=== PATIENT | male | born 1980 | race Caucasian/White ===

== ENCOUNTER 2016-05-20 06:21 | Emergency (ER) | payer OTHER ==
[~2016-05-20] VITALS: Ht 182.8 cm; Wt 68.0 kg
[~2016-05-20 06:21] MED LIST: CLEOCIN150 MG PO; CLINDAMYCIN HC300 MG PO; HYDROCODONE BIT1 T11 PO; MOTRIN800 MG PO; Motrin,Rufen800 MG PO; NAPROSYN500 MG PO; NKHM; PERCOCET 325 MG1 TA7 PO
[2016-05-20 06:59] LABS: BASO # 0.1 10*3/uL (0.0-0.1); BASO % 1.5 % (0.0-1.0); EOS # 0.2 10*3/uL (0.0-0.4); EOS % 3.1 % (1.0-4.0); HEMATOCRIT 38.7 % (42.0-52.0); HEMOGLOBIN 13.2 g/dl (14.0-18.0); LYMPH # 1.7 10*3/uL (1.3-4.4); LYMPH % 35.1 % (27.0-41.0); MEAN CELL VOLUME 102.1 fl (80.0-94.0); MEAN CORPUSCULAR HGB 34.8 pg (27.0-31.0); MEAN CORPUSCULAR HGB CONC 34.1 g/dl (33.0-37.0); MONO # 0.8 10*3/uL (0.1-1.0); MONO % 15.7 % (3.0-9.0); NEUT # 2.1 10*3/uL (2.3-7.9); NEUT % 44.4 % (47.0-73.0); PLATELET COUNT AUTOMATED 214 10*3/uL (130-400); RED BLOOD COUNT 3.79 10*6/uL (4.50-5.90); RED CELL DISTRI WIDTH 13.2 % (0-14.5); WHITE BLOOD COUNT 4.8 10*3/uL (4.8-10.8)
[2016-05-20 07:07] LABS: PROTHROMBIN TIME 10.3 SECONDS (9.0-12.4)
[2016-05-20 07:27] LABS: ALBUMIN 4.2 gm/dl (3.1-4.5); ALKALINE PHOSPHATASE 70 U/L (45-117); BILIRUBIN, TOTAL 0.4 mg/dl (0.2-1.0); BUN 11 mg/dl (7-24); CARBON DIOXIDE 26 mmol/L (21-32); CHLORIDE 105 mmol/L (98-107); EST GLOM FILT AFRICAN AMERICAN > 60 ml/min; GLUCOSE 101 mg/dL (65-99); MAGNESIUM 1.6 mg/dL (1.5-2.1); POTASSIUM 3.9 mmol/L (3.5-5.1); SGOT/AST 228 IU/L (3-35); SGPT/ALT 118 U/L (12-78); SODIUM 143 mmol/L (136-145); TOTAL PROTEIN 7.9 gm/dL (6.4-8.2)
[2016-05-20 07:29] LABS: C-REACTIVE PROTEIN < 0.29 MG/DL (0-0.3)
[2016-06-09] MEDS ORDERED: ATARAX,VISTARIL50 MG PO (18:16)
[2016-06-09] MEDS ORDERED: VITAMIN B-11 TAB PO (18:16)
[2016-06-09] MEDS ORDERED: NATURE'S BLEND F1 MG PO (18:16)
[2016-06-09] MEDS ORDERED: PANTOPRAZOLE SO40 MG PO (18:16)
[2016-06-09] MEDS ORDERED: Carafate1 GM/10 ML PO (18:16)
[2016-06-09] MEDS ORDERED: THERA TABS1 TAB PO (18:16)
== END 2016-05-20 09:20 | disposition left against medical advice (07) ==
LOC: ED 06:21
PROVIDERS: Emergency Medicine Emergency Medical Services
DX: K59.00 Constipation, unspecified (principal); F10.120 Alcohol abuse with intoxication, uncomplicated; F17.200 Nicotine dependence, unspecified, uncomplicated

== ENCOUNTER 2017-04-22 10:33 | Emergency (ER) | payer OTHER ==
[~2017-04-22] VITALS: Ht 182.8 cm; Wt 68.0 kg
[~2017-04-22 10:33] MED LIST changes: +ATARAX,VISTARIL50 MG PO; +Carafate1 GM/10 ML PO; +NATURE'S BLEND F1 MG PO; +PANTOPRAZOLE SO40 MG PO; +THERA TABS1 TAB PO; +VITAMIN B-11 TAB PO
[2017-04-22] MEDS ORDERED: ZOFRAN ODT4 MG SL (11:41)
== END 2017-04-22 11:33 | disposition home or self-care (01) ==
LOC: ED 10:33
DX: A08.4 Viral intestinal infection, unspecified (principal); R51 Headache; K21.9 Gastro-esophageal reflux disease without esophagitis; F17.200 Nicotine dependence, unspecified, uncomplicated

== ENCOUNTER 2017-08-25 09:00 | Emergency (ER) | payer OTHER ==
[~2017-08-25] VITALS: Ht 182.8 cm; Wt 68.0 kg
[~2017-08-25 09:00] MED LIST changes: +ZOFRAN ODT4 MG SL
[2017-08-25 09:03] VITALS: BP 110/85
[2017-08-25 09:28] LABS: BASO # 0.1 10*3/uL (0.0-0.1); BASO % 0.7 % (0.0-1.0); EOS # 0.1 10*3/uL (0.0-0.4); EOS % 0.4 % (1.0-4.0); HEMATOCRIT 42.5 % (42.0-52.0); HEMOGLOBIN 15.1 g/dl (14.0-18.0); LYMPH # 1.9 10*3/uL (1.3-4.4); MEAN CELL VOLUME 95.1 fl (80.0-94.0); MEAN CORPUSCULAR HGB 33.8 pg (27.0-31.0); MEAN CORPUSCULAR HGB CONC 35.5 g/dl (33.0-37.0); MONO # 0.8 10*3/uL (0.1-1.0); MONO % 6.4 % (3.0-9.0); NEUT # 9.9 10*3/uL (2.3-7.9); PLATELET COUNT AUTOMATED 340 10*3/uL (130-400); RED BLOOD COUNT 4.47 10*6/uL (4.50-5.90); RED CELL DISTRI WIDTH 12.5 % (0-14.5); WHITE BLOOD COUNT 12.8 10*3/uL (4.8-10.8)
[2017-08-25 09:48] LABS: ALKALINE PHOSPHATASE 90 U/L (45-117); BUN 12 mg/dl (7-24); CHLORIDE 104 mmol/L (98-107); CREATININE 0.86 mg/dL (0.70-1.30); LIPASE 74 U/L (73-393); POTASSIUM 3.7 mmol/L (3.5-5.1); SGOT/AST 42 IU/L (3-35); SGPT/ALT 34 U/L (12-78); SODIUM 140 mmol/L (136-145); TOTAL PROTEIN 7.9 gm/dL (6.4-8.2)
[2017-08-25 09:54] LABS: BILIRUBIN NEGATIVE (NEGATIVE); BLOOD NEGATIVE (NEGATIVE); CLARITY CLEAR (CLEAR); COLOR YELLOW (YELLOW); GLUCOSE NEGATIVE (NEGATIVE); KETONE 1+ (NEGATIVE); LEUKO ESTERASE NEGATIVE (NEGATIVE); NITRITE NEGATIVE (NEGATIVE)
[2017-08-25 10:00] VITALS: BP 128/84
[2017-08-25 10:02] LABS: URINE AMPHETAMINES < 1000 (1000ng/ml); URINE BARBITURATES < 200 (200ng/ml); URINE BENZODIAZEPINES < 200 (200ng/ml); URINE CANNABINOIDS (THC) > 50 (50ng/ml); URINE COCAINE < 300 (300ng/ml); URINE METHADONE < 300 (300ng/ml); URINE OPIATES < 300 (300ng/ml)
[2017-08-25 10:09] LABS: BACTERIA TRACE; MUCOUS 3+
[2017-08-25 10:11] LABS: URINE PHENCYCLIDINE < 25 (25ng/ml)
[2017-08-25 10:50] VITALS: BP 118/72
[2017-08-25 11:17] LABS: ACT PARTIAL THROMBO TIME 20.7 SECONDS (20.8-31.5)
[2017-08-25 11:56] VITALS: BP 124/72
== END 2017-08-25 12:43 | disposition home or self-care (01) ==
LOC: ED 09:00 → EDHOLD 11:46 → 4E 11:53 → EDHOLD 11:53 → ED 12:43
PROVIDERS: Emergency Medicine
DX: K29.20 Alcoholic gastritis without bleeding (principal); R74.0 Nonspecific elevation of levels of transaminase and lactic acid dehydrogenase [LDH]; R10.84 Generalized abdominal pain; F17.200 Nicotine dependence, unspecified, uncomplicated; K21.9 Gastro-esophageal reflux disease without esophagitis

== ENCOUNTER 2017-09-05 14:36 | Emergency (ER) | payer OTHER ==
[~2017-09-05] VITALS: Ht 182.8 cm; Wt 68.0 kg
[2017-09-05 15:00] LABS: BASO # 0.1 10*3/uL (0.0-0.1); BASO % 0.6 % (0.0-1.0); EOS % 0.1 % (1.0-4.0); HEMATOCRIT 39.6 % (42.0-52.0); HEMOGLOBIN 14.2 g/dl (14.0-18.0); LYMPH # 1.2 10*3/uL (1.3-4.4); LYMPH % 9.4 % (27.0-41.0); MEAN CELL VOLUME 95.2 fl (80.0-94.0); MEAN CORPUSCULAR HGB 34.1 pg (27.0-31.0); MEAN CORPUSCULAR HGB CONC 35.9 g/dl (33.0-37.0); MEAN PLATELET VOLUME 8.6 fl (9.6-12.3); MONO # 0.8 10*3/uL (0.1-1.0); MONO % 6.2 % (3.0-9.0); NEUT # 10.6 10*3/uL (2.3-7.9); NEUT % 83.3 % (47.0-73.0); PLATELET COUNT AUTOMATED 341 10*3/uL (130-400); RED BLOOD COUNT 4.16 10*6/uL (4.50-5.90); RED CELL DISTRI WIDTH 12.7 % (0-14.5); WHITE BLOOD COUNT 12.7 10*3/uL (4.8-10.8)
[2017-09-05 15:23] LABS: ALBUMIN 4.6 gm/dl (3.1-4.5); ALKALINE PHOSPHATASE 87 U/L (45-117); BUN 13 mg/dl (7-24); CHLORIDE 103 mmol/L (98-107); CREATININE 0.94 mg/dL (0.70-1.30); LIPASE 122 U/L (73-393); POTASSIUM 3.8 mmol/L (3.5-5.1); SGOT/AST 25 IU/L (3-35); SGPT/ALT 21 U/L (12-78); SODIUM 142 mmol/L (136-145); TOTAL PROTEIN 8.6 gm/dL (6.4-8.2)
[2017-09-05 15:26] LABS: ACETAMINOPHEN (TYLENOL) < 2.0 ug/ml (10-30); ETHYL ALCOHOL < 3.0 mg/dl (<3)
[2017-09-05] MEDS ORDERED: ZOFRAN4 MG PO ×2 (16:59→17:00)
== END 2017-09-05 16:59 | disposition home or self-care (01) ==
LOC: ED 14:36
PROVIDERS: Nurse Practitioner Family
DX: K52.9 Noninfective gastroenteritis and colitis, unspecified (principal); R03.0 Elevated blood-pressure reading, without diagnosis of hypertension; K21.9 Gastro-esophageal reflux disease without esophagitis

== ENCOUNTER 2018-07-21 20:07 | Emergency (ER) | payer OTHER ==
[~2018-07-21] VITALS: Ht 182.8 cm; Wt 70.3 kg
[~2018-07-21 20:07] MED LIST changes: +ZOFRAN4 MG PO
[2018-07-21] MEDS ORDERED: 'CLONIDINE0.1 MG PO (20:17)
== END 2018-07-21 20:42 | disposition home or self-care (01) ==
LOC: ED 20:07
DX: S10.86XA Insect bite of other specified part of neck, initial encounter (principal); K21.9 Gastro-esophageal reflux disease without esophagitis; F17.200 Nicotine dependence, unspecified, uncomplicated; Z79.899 Other long term (current) drug therapy; W57.XXXA Bitten or stung by nonvenomous insect and other nonvenomous arthropods, initial encounter; Y93.89 Activity, other specified; Y92.89 Other specified places as the place of occurrence of the external cause; Y99.8 Other external cause status

== ENCOUNTER 2021-02-23 11:10 | Inpatient (IN) | payer OTHER ==
[~2021-02-23] VITALS: Ht 182.8 cm; Wt 68.0 kg
[~2021-02-23 11:10] MED LIST changes: +'CLONIDINE0.1 MG PO
[2021-02-23 11:37] VITALS: BP 126/78
[2021-02-23 13:04] LABS: BASO # 0.1 10*3/uL (0.0-0.1); BASO % 1.4 % (0.0-1.0); EOS # 0.1 10*3/uL (0.0-0.4); EOS % 2.1 % (1.0-4.0); HEMATOCRIT 37.7 % (42.0-52.0); LYMPH % 20.1 % (27.0-41.0); MEAN CELL VOLUME 93.5 fl (80.0-94.0); MEAN CORPUSCULAR HGB 33.7 pg (27.0-31.0); MEAN CORPUSCULAR HGB CONC 36.1 g/dl (33.0-37.0); MEAN PLATELET VOLUME 8.4 fl (9.6-12.3); MONO # 0.6 10*3/uL (0.1-1.0); MONO % 12.9 % (3.0-9.0); NEUT # 3.1 10*3/uL (2.3-7.9); NEUT % 62.9 % (47.0-73.0); PLATELET COUNT AUTOMATED 264 10*3/uL (130-400); RED BLOOD COUNT 4.03 10*6/uL (4.50-5.90); RED CELL DISTRI WIDTH 12.8 % (0-14.5); WHITE BLOOD COUNT 4.9 10*3/uL (4.8-10.8)
[2021-02-23 13:37] LABS: ALBUMIN 4.2 gm/dl (3.1-4.5); ALKALINE PHOSPHATASE 69 U/L (45-117); BUN 5 mg/dl (7-24); CHLORIDE 90 mmol/L (98-107); CREATININE 0.64 mg/dL (0.70-1.30); POTASSIUM 4.3 mmol/L (3.5-5.1); SGOT/AST 125 IU/L (3-35); SGPT/ALT 98 U/L (12-78); SODIUM 127 mmol/L (136-145); TOTAL PROTEIN 7.9 gm/dL (6.4-8.2)
[2021-02-23 13:38] LABS: ACT PARTIAL THROMBO TIME 28.8 SECONDS (20.0-32.1); INTERNATIONAL NORM RATIO 0.9 (2.0-3.5)
[2021-02-23 13:45] LABS: THYROID STIM HORMONE (HS) 0.988 uIU/ml (0.358-4.75)
[2021-02-23 14:53] LABS: BILIRUBIN Negative (Negative); BLOOD Negative (Negative); CLARITY Clear (Clear); COLOR Yellow (Yellow); GLUCOSE Negative (Negative); KETONE Negative (Negative); LEUKO ESTERASE Negative (Negative); NITRITE Negative (Negative); SPECIFIC GRAVITY <= 1.005 (1.001-1.030); UROBILINOGEN 0.2 E.U./dl (0.0-1.0)
[2021-02-23 15:02] LABS: EPITHELIAL CELLS 0-2; RBC 0-2 rbc/hpf (0-2); WBC 0-2 wbc/hpf (0-5)
[2021-02-23 15:04] LABS: URINE AMPHETAMINES < 1000 (1000ng/ml); URINE BARBITURATES < 200 (200ng/ml); URINE BENZODIAZEPINES < 200 (200ng/ml); URINE CANNABINOIDS (THC) > 50 (50ng/ml); URINE COCAINE < 300 (300ng/ml); URINE METHADONE < 300 (300ng/ml); URINE OPIATES < 300 (300ng/ml)
[2021-02-23 15:07] LABS: URINE PHENCYCLIDINE < 25 (25ng/ml)
== END 2021-02-23 17:22 | disposition left against medical advice (07) | DRG 770 ==
LOC: ED 11:10 → EDHOLD 15:29
PROVIDERS: Emergency Medicine; ADMIT Student in an Organized Health Care Education/Training Program; ATTEND Student in an Organized Health Care Education/Training Program
DX: F10.229 Alcohol dependence with intoxication, unspecified (principal); G62.9 Polyneuropathy, unspecified; K21.9 Gastro-esophageal reflux disease without esophagitis; R74.01 Elevation of levels of liver transaminase levels; F17.210 Nicotine dependence, cigarettes, uncomplicated; D53.9 Nutritional anemia, unspecified; E87.1 Hypo-osmolality and hyponatremia; F10.239 Alcohol dependence with withdrawal, unspecified; F41.9 Anxiety disorder, unspecified; Z80.1 Family history of malignant neoplasm of trachea, bronchus and lung; Z79.899 Other long term (current) drug therapy

== ENCOUNTER 2021-03-18 09:52 | Emergency (ER) | payer OTHER ==
[~2021-03-18] VITALS: Ht 182.8 cm; Wt 65.8 kg
[2021-03-18 10:25] LABS: BASO # 0.1 10*3/uL (0.0-0.1); BASO % 0.9 % (0.0-1.0); EOS # 0.1 10*3/uL (0.0-0.4); EOS % 1.8 % (1.0-4.0); HEMATOCRIT 42.3 % (42.0-52.0); LYMPH # 0.9 10*3/uL (1.3-4.4); MEAN CELL VOLUME 98.8 fl (80.0-94.0); MEAN CORPUSCULAR HGB 33.2 pg (27.0-31.0); MEAN CORPUSCULAR HGB CONC 33.6 g/dl (33.0-37.0); MEAN PLATELET VOLUME 8.9 fl (9.6-12.3); MONO % 17.3 % (3.0-9.0); NEUT # 3.6 10*3/uL (2.3-7.9); NEUT % 63.8 % (47.0-73.0); PLATELET COUNT AUTOMATED 220 10*3/uL (130-400); RED BLOOD COUNT 4.28 10*6/uL (4.50-5.90); RED CELL DISTRI WIDTH 13.4 % (0-14.5); WHITE BLOOD COUNT 5.6 10*3/uL (4.8-10.8)
[2021-03-18 10:39] LABS: ALBUMIN 4.7 gm/dl (3.1-4.5); ALKALINE PHOSPHATASE 89 U/L (45-117); BUN 16 mg/dl (7-24); CHLORIDE 98 mmol/L (98-107); CREATININE 0.95 mg/dL (0.70-1.30); POTASSIUM 3.4 mmol/L (3.5-5.1); SGOT/AST 101 IU/L (3-35); SGPT/ALT 101 U/L (12-78); SODIUM 133 mmol/L (136-145); TOTAL PROTEIN 8.9 gm/dL (6.4-8.2)
[2021-03-18 10:42] LABS: ETHYL ALCOHOL < 3.0 mg/dl (<3)
[2021-03-18 10:57] LABS: BILIRUBIN 1+ (Negative); BLOOD Negative (Negative); CLARITY Cloudy (Clear); COLOR Dark Yellow (Yellow); GLUCOSE Negative (Negative); KETONE Trace (Negative); LEUKO ESTERASE Trace (Negative); NITRITE Negative (Negative); PH 7.5 (4.5-8.0); SPECIFIC GRAVITY >= 1.030 (1.001-1.030)
[2021-03-18 11:06] LABS: MUCOUS 1+
[2021-03-18 11:12] LABS: URINE AMPHETAMINES < 1000 (1000ng/ml); URINE BARBITURATES < 200 (200ng/ml); URINE BENZODIAZEPINES < 200 (200ng/ml); URINE CANNABINOIDS (THC) > 50 (50ng/ml); URINE COCAINE < 300 (300ng/ml); URINE METHADONE < 300 (300ng/ml); URINE OPIATES < 300 (300ng/ml)
[2021-03-18] MEDS ORDERED: ROPINIROLE HYD0.5 MG PO (11:16)
[2021-03-18 11:18] LABS: URINE PHENCYCLIDINE < 25 (25ng/ml)
== END 2021-03-18 11:22 | disposition home or self-care (01) ==
LOC: ED 09:52
PROVIDERS: Student in an Organized Health Care Education/Training Program
DX: G62.1 Alcoholic polyneuropathy (principal)

== ENCOUNTER 2021-04-13 21:10 | Emergency (ER) | payer OTHER ==
[~2021-04-13] VITALS: Ht 182.8 cm; Wt 63.5 kg
[~2021-04-13 21:10] MED LIST changes: +ROPINIROLE HYD0.5 MG PO
[2021-04-13] MEDS ORDERED: PENICILLIN VK500 MG PO (21:37)
== END 2021-04-13 21:44 | disposition home or self-care (01) ==
LOC: ED 21:10
DX: K04.7 Periapical abscess without sinus (principal); K02.9 Dental caries, unspecified

== ENCOUNTER 2021-07-26 06:20 | Emergency (ER) | payer OTHER ==
[~2021-07-26 06:20] MED LIST changes: +PENICILLIN VK500 MG PO
== END 2021-07-26 08:11 | disposition home or self-care (01) ==
LOC: ED 06:20
DX: S01.01XA Laceration without foreign body of scalp, initial encounter (principal); F17.210 Nicotine dependence, cigarettes, uncomplicated; W18.39XA Other fall on same level, initial encounter; Y93.89 Activity, other specified; Y92.89 Other specified places as the place of occurrence of the external cause; Y99.8 Other external cause status

== ENCOUNTER → 2021-08-01 | Outpatient (CLI) | payer OTHER | LOC: WOUNDCARE 13:56 | PROVIDERS: ATTEND Nurse Practitioner Family | DX: S01.80XA Unspecified open wound of other part of head, initial encounter (principal); Z48.02 Encounter for removal of sutures; X58.XXXA Exposure to other specified factors, initial encounter; Y93.89 Activity, other specified; Y92.89 Other specified places as the place of occurrence of the external cause; Y99.8 Other external cause status ==

== ENCOUNTER 2022-01-13 19:13 | Inpatient (IN) | payer OTHER ==
[~2022-01-13] VITALS: Ht 182.8 cm; Wt 66.7 kg
[2022-01-13 19:23] VITALS: BP 160/82
[2022-01-13 20:02] LABS: BASO % 0.1 % (0.0-1.0); EOS % 0.1 % (1.0-4.0)
[2022-01-13 20:06] LABS: HEMATOCRIT 41.8 % (42.0-52.0); LYMPH # 0.9 10*3/uL (1.3-4.4); LYMPH % 5.7 % (27.0-41.0); MEAN CELL VOLUME 90.9 fl (80.0-94.0); MEAN CORPUSCULAR HGB 33.7 pg (27.0-31.0); MONO # 1.4 10*3/uL (0.1-1.0); MONO % 9.4 % (3.0-9.0); NEUT # 12.7 10*3/uL (2.3-7.9); NEUT % 84.4 % (47.0-73.0); PLATELET COUNT AUTOMATED 264 10*3/uL (130-400); RED CELL DISTRI WIDTH 12.1 % (0-14.5)
[2022-01-13 20:07] LABS: MEAN CORPUSCULAR HGB CONC 37.1 g/dl (33.0-37.0)
[2022-01-13 20:20] LABS: ALKALINE PHOSPHATASE 90 U/L (45-117); BUN 8 mg/dl (7-24); CHLORIDE 92 mmol/L (98-107); CREATININE 0.85 mg/dL (0.70-1.30); ETHYL ALCOHOL < 3.0 mg/dl (<3); LIPASE 114 U/L (73-393); POTASSIUM 5.2 mmol/L (3.5-5.1); SGOT/AST 23 IU/L (3-35); SGPT/ALT 18 U/L (12-78); SODIUM 129 mmol/L (136-145); TOTAL PROTEIN 8.4 gm/dL (6.4-8.2)
[2022-01-13 20:28] VITALS: BP 168/87
[2022-01-13 21:10] VITALS: BP 148/86
[2022-01-14] VITALS (7 sets, daily range): BP systolic 129–166; BP diastolic 89–102
[2022-01-14 04:07] LABS: BASO % 0.1 % (0.0-1.0); HEMATOCRIT 40.8 % (42.0-52.0); LYMPH # 0.8 10*3/uL (1.3-4.4); LYMPH % 6.7 % (27.0-41.0); MEAN CELL VOLUME 92.5 fl (80.0-94.0); MEAN CORPUSCULAR HGB 33.8 pg (27.0-31.0); MEAN CORPUSCULAR HGB CONC 36.5 g/dl (33.0-37.0); MEAN PLATELET VOLUME 8.9 fl (9.6-12.3); MONO # 1.3 10*3/uL (0.1-1.0); MONO % 11.2 % (3.0-9.0); NEUT # 9.7 10*3/uL (2.3-7.9); NEUT % 81.7 % (47.0-73.0); PLATELET COUNT AUTOMATED 269 10*3/uL (130-400); RED BLOOD COUNT 4.41 10*6/uL (4.50-5.90); RED CELL DISTRI WIDTH 12.3 % (0-14.5); WHITE BLOOD COUNT 11.9 10*3/uL (4.8-10.8)
[2022-01-14 04:27] LABS: BUN 6 mg/dl (7-24); CHLORIDE 97 mmol/L (98-107); CHOLESTEROL 167 mg/dL (<200); CREATININE 0.71 mg/dL (0.70-1.30); SGOT/AST 20 IU/L (3-35); SGPT/ALT 15 U/L (12-78); SODIUM 132 mmol/L (136-145); TOTAL PROTEIN 8.2 gm/dL (6.4-8.2); TRIGLYCERIDES 94 mg/dl (<150)
[2022-01-14 04:28] LABS: ALKALINE PHOSPHATASE 85 U/L (45-117)
[2022-01-14 04:32] LABS: FREE T4 1.26 ng/dl (0.76-1.46); LDL CHOLESTEROL 89 mg/dL (9-159); THYROID STIM HORMONE (HS) 0.998 uIU/ml (0.358-4.75)
[2022-01-15] VITALS (11 sets, daily range): BP systolic 132–191; BP diastolic 92–116
[2022-01-15 06:23] LABS: HEMATOCRIT 46.8 % (42.0-52.0); MEAN CELL VOLUME 92.9 fl (80.0-94.0); MEAN CORPUSCULAR HGB 33.3 pg (27.0-31.0); MEAN CORPUSCULAR HGB CONC 35.9 g/dl (33.0-37.0); MEAN PLATELET VOLUME 8.8 fl (9.6-12.3); PLATELET COUNT AUTOMATED 343 10*3/uL (130-400); RED BLOOD COUNT 5.04 10*6/uL (4.50-5.90); RED CELL DISTRI WIDTH 12.3 % (0-14.5); WHITE BLOOD COUNT 16.3 10*3/uL (4.8-10.8)
[2022-01-15 06:24] LABS: MANUAL DIFF REFLEX YES
[2022-01-15 06:41] LABS: CHLORIDE 92 mmol/L (98-107); POTASSIUM 4.3 mmol/L (3.5-5.1); SODIUM 131 mmol/L (136-145)
[2022-01-15 06:51] LABS: ALKALINE PHOSPHATASE 88 U/L (45-117); BUN 16 mg/dl (7-24); CREATININE 1.55 mg/dL (0.70-1.30); SGOT/AST 15 IU/L (3-35); SGPT/ALT 16 U/L (12-78); TOTAL PROTEIN 9.1 gm/dL (6.4-8.2)
[2022-01-15 07:31] LABS: ATYPICAL LYMPHS 1 % (0-0); TOTAL CELLS COUNTED 100 #CELLS
[2022-01-15 07:32] LABS: PLATELET SUFFICIENCY NORMAL (NORMAL); POLYCHROMASIA SLIGHT; TOXIC GRANULATION SLIGHT
[2022-01-16 03:27] VITALS: BP 135/83
[2022-01-16 06:44] LABS: HEMATOCRIT 42.1 % (42.0-52.0); MEAN CELL VOLUME 95.7 fl (80.0-94.0); MEAN CORPUSCULAR HGB 33.9 pg (27.0-31.0); MEAN CORPUSCULAR HGB CONC 35.4 g/dl (33.0-37.0); MEAN PLATELET VOLUME 8.8 fl (9.6-12.3); PLATELET COUNT AUTOMATED 327 10*3/uL (130-400); RED CELL DISTRI WIDTH 12.5 % (0-14.5); WHITE BLOOD COUNT 16.9 10*3/uL (4.8-10.8)
[2022-01-16 06:50] LABS: MANUAL DIFF REFLEX YES
[2022-01-16 06:59] LABS: ALKALINE PHOSPHATASE 72 U/L (45-117); BUN 19 mg/dl (7-24); CHLORIDE 99 mmol/L (98-107); CREATININE 0.87 mg/dL (0.70-1.30); POTASSIUM 4.2 mmol/L (3.5-5.1); SGOT/AST 10 IU/L (3-35); SGPT/ALT 12 U/L (12-78); SODIUM 131 mmol/L (136-145); TOTAL PROTEIN 7.5 gm/dL (6.4-8.2)
[2022-01-16 07:40] LABS: TOTAL CELLS COUNTED 100 #CELLS
[2022-01-16 07:41] LABS: PLATELET SUFFICIENCY NORMAL (NORMAL); POLYCHROMASIA SLIGHT; TOXIC GRANULATION SLIGHT
[2022-01-16 08:00] VITALS: BP 151/93
[2022-01-16 11:59] VITALS: BP 172/92
[2022-01-16 16:00] VITALS: BP 153/89
[2022-01-16 20:00] VITALS: BP 151/90
[2022-01-17] VITALS: BP 155/90
[2022-01-17 06:32] LABS: MEAN CORPUSCULAR HGB 34.1 pg (27.0-31.0); MEAN CORPUSCULAR HGB CONC 34.4 g/dl (33.0-37.0); MEAN PLATELET VOLUME 8.5 fl (9.6-12.3); PLATELET COUNT AUTOMATED 323 10*3/uL (130-400); RED BLOOD COUNT 3.93 10*6/uL (4.50-5.90); RED CELL DISTRI WIDTH 12.4 % (0-14.5); WHITE BLOOD COUNT 18.9 10*3/uL (4.8-10.8)
[2022-01-17 06:33] LABS: MANUAL DIFF REFLEX YES
[2022-01-17 06:34] LABS: MEAN CELL VOLUME 99.2 fl (80.0-94.0)
[2022-01-17 06:43] LABS: CHLORIDE 99 mmol/L (98-107); CREATININE 0.81 mg/dL (0.70-1.30); POTASSIUM 4.1 mmol/L (3.5-5.1); SODIUM 134 mmol/L (136-145)
[2022-01-17 06:46] LABS: BUN 9 mg/dl (7-24)
[2022-01-17 06:54] LABS: TOTAL CELLS COUNTED 100 #CELLS
[2022-01-17 06:55] LABS: PLATELET SUFFICIENCY NORMAL (NORMAL); POLYCHROMASIA SLIGHT; TOXIC GRANULATION SLIGHT
[2022-01-17 08:00] VITALS: BP 142/91
[2022-01-17 12:00] VITALS: BP 160/90
[2022-01-17 16:00] VITALS: BP 155/91
[2022-01-17 20:00] VITALS: BP 168/95
[2022-01-17 21:33] VITALS: BP 148/93
[2022-01-18] VITALS: BP 150/92
[2022-01-18 06:04] LABS: BUN 7 mg/dl (7-24); CHLORIDE 101 mmol/L (98-107); CREATININE 0.54 mg/dL (0.70-1.30); POTASSIUM 3.5 mmol/L (3.5-5.1); SODIUM 136 mmol/L (136-145)
[2022-01-18 06:24] LABS: HEMATOCRIT 34.5 % (42.0-52.0); MEAN CORPUSCULAR HGB 34.4 pg (27.0-31.0); MEAN CORPUSCULAR HGB CONC 35.1 g/dl (33.0-37.0); MEAN PLATELET VOLUME 8.8 fl (9.6-12.3); PLATELET COUNT AUTOMATED 358 10*3/uL (130-400); RED BLOOD COUNT 3.52 10*6/uL (4.50-5.90); RED CELL DISTRI WIDTH 12.1 % (0-14.5); WHITE BLOOD COUNT 14.6 10*3/uL (4.8-10.8)
[2022-01-18 06:25] LABS: MANUAL DIFF REFLEX YES
[2022-01-18 07:09] LABS: TOTAL CELLS COUNTED 100 #CELLS
[2022-01-18 07:10] LABS: PLATELET SUFFICIENCY NORMAL (NORMAL)
[2022-01-18 08:00] VITALS: BP 160/97
[2022-01-18 16:00] VITALS: BP 155/92
[2022-01-18 20:00] VITALS: BP 137/65; BP 157/90
[2022-01-19 05:17] LABS: BUN 11 mg/dl (7-24); CHLORIDE 102 mmol/L (98-107); CREATININE 0.64 mg/dL (0.70-1.30); POTASSIUM 3.7 mmol/L (3.5-5.1); SODIUM 138 mmol/L (136-145)
[2022-01-19 06:24] LABS: HEMATOCRIT 34.7 % (42.0-52.0); MEAN CELL VOLUME 99.4 fl (80.0-94.0); MEAN CORPUSCULAR HGB 34.4 pg (27.0-31.0); MEAN CORPUSCULAR HGB CONC 34.6 g/dl (33.0-37.0); PLATELET COUNT AUTOMATED 459 10*3/uL (130-400); RED BLOOD COUNT 3.49 10*6/uL (4.50-5.90); RED CELL DISTRI WIDTH 12.1 % (0-14.5); WHITE BLOOD COUNT 14.1 10*3/uL (4.8-10.8)
[2022-01-19 06:27] LABS: MANUAL DIFF REFLEX YES
[2022-01-19 07:18] LABS: TOTAL CELLS COUNTED 100 #CELLS
[2022-01-19 07:19] LABS: BURR CELLS FEW; PLATELET SUFFICIENCY HIGH (NORMAL); POLYCHROMASIA SLIGHT; TOXIC GRANULATION SLIGHT
[2022-01-19 08:00] VITALS: BP 150/70
[2022-01-19 12:00] VITALS: BP 147/93
[2022-01-19 16:00] VITALS: BP 131/83
[2022-01-19 20:00] VITALS: BP 122/63; BP 135/93
[2022-01-20] VITALS: BP 142/90
[2022-01-20 05:36] LABS: BUN 9 mg/dl (7-24); CHLORIDE 103 mmol/L (98-107); CREATININE 0.62 mg/dL (0.70-1.30); SODIUM 135 mmol/L (136-145)
[2022-01-20 06:14] LABS: HEMATOCRIT 32.5 % (42.0-52.0); MEAN CELL VOLUME 97.6 fl (80.0-94.0); MEAN CORPUSCULAR HGB 34.5 pg (27.0-31.0); MEAN CORPUSCULAR HGB CONC 35.4 g/dl (33.0-37.0); PLATELET COUNT AUTOMATED 495 10*3/uL (130-400); RED BLOOD COUNT 3.33 10*6/uL (4.50-5.90); RED CELL DISTRI WIDTH 11.9 % (0-14.5); WHITE BLOOD COUNT 13.3 10*3/uL (4.8-10.8)
[2022-01-20 06:16] LABS: MANUAL DIFF REFLEX YES
[2022-01-20 06:54] LABS: BASOPHILS 1 % (0-1); PLATELET SUFFICIENCY HIGH (NORMAL); POLYCHROMASIA SLIGHT; TOTAL CELLS COUNTED 100 #CELLS; TOXIC GRANULATION SLIGHT
[2022-01-20 08:00] VITALS: BP 121/79
[2022-01-20] MEDS ORDERED: ONDANSETRON4 MG SL (09:41)
[2022-01-20] MEDS ORDERED: Motrin,Rufen800 MG PO (09:41)
== END 2022-01-20 10:11 | disposition home or self-care (01) | DRG 222 ==
LOC: ED 19:13 → 4E 22:56 → EDHOLD 22:56 → 4E 01-14 15:52
PROVIDERS: Internal Medicine; Occupational Therapist; Physician Assistant; Student in an Organized Health Care Education/Training Program; ADMIT Student in an Organized Health Care Education/Training Program; ATTEND Student in an Organized Health Care Education/Training Program
PROC: 0D9670Z Drainage of Stomach with Drainage Device, Via Natural or Artificial Opening (ICD-10-PCS; principal; 2022-01-14)
PROC: 0DNW0ZZ Release Peritoneum, Open Approach (ICD-10-PCS; 2022-01-15)
PROC: 0DJ04ZZ Inspection of Upper Intestinal Tract, Percutaneous Endoscopic Approach (ICD-10-PCS; 2022-01-15)
DX: K56.609 Unspecified intestinal obstruction, unspecified as to partial versus complete obstruction (principal); E87.1 Hypo-osmolality and hyponatremia; R65.10 Systemic inflammatory response syndrome (SIRS) of non-infectious origin without acute organ dysfunction; K91.89 Other postprocedural complications and disorders of digestive system; Z20.822 Contact with and (suspected) exposure to COVID-19; F41.9 Anxiety disorder, unspecified; K21.9 Gastro-esophageal reflux disease without esophagitis; E87.5 Hyperkalemia; F10.239 Alcohol dependence with withdrawal, unspecified; E80.6 Other disorders of bilirubin metabolism; R73.9 Hyperglycemia, unspecified; E87.8 Other disorders of electrolyte and fluid balance, not elsewhere classified; Z80.1 Family history of malignant neoplasm of trachea, bronchus and lung; K66.0 Peritoneal adhesions (postprocedural) (postinfection)

== ENCOUNTER 2022-10-17 12:58 | Inpatient (IN) | payer OTHER ==
[~2022-10-17] VITALS: Ht 182.9 cm; Wt 64.4 kg
[~2022-10-17 12:58] MED LIST changes: +ONDANSETRON4 MG SL
[2022-10-17 13:03] VITALS: BP 143/97
[2022-10-17 13:55] LABS: BASO # 0.1 10*3/uL (0.0-0.1); BASO % 1.1 % (0.0-1.0); EOS # 0.1 10*3/uL (0.0-0.4); EOS % 2.1 % (1.0-4.0); HEMATOCRIT 40.1 % (42.0-52.0); LYMPH # 1.5 10*3/uL (1.3-4.4); LYMPH % 22.9 % (27.0-41.0); MEAN CELL VOLUME 94.1 fl (80.0-94.0); MEAN CORPUSCULAR HGB 34.5 pg (27.0-31.0); MEAN CORPUSCULAR HGB CONC 36.7 g/dl (33.0-37.0); MEAN PLATELET VOLUME 8.9 fl (9.6-12.3); MONO # 0.7 10*3/uL (0.1-1.0); MONO % 11.2 % (3.0-9.0); NEUT % 62.5 % (47.0-73.0); PLATELET COUNT AUTOMATED 197 10*3/uL (130-400); RED BLOOD COUNT 4.26 10*6/uL (4.50-5.90); RED CELL DISTRI WIDTH 12.1 % (0-14.5); WHITE BLOOD COUNT 6.3 10*3/uL (4.8-10.8)
[2022-10-17 14:11] LABS: ACT PARTIAL THROMBO TIME 28.8 SECONDS (20.0-32.1)
[2022-10-17 14:12] LABS: BILIRUBIN Negative (Negative); BLOOD Negative (Negative); CLARITY Clear (Clear); COLOR Orange (Yellow); GLUCOSE Negative (Negative); KETONE Trace (Negative); LEUKO ESTERASE 1+ (Negative); NITRITE Negative (Negative); PH 6.5 (4.5-8.0); SPECIFIC GRAVITY <= 1.005 (1.001-1.030)
[2022-10-17 14:19] LABS: BACTERIA 1+; MUCOUS 1+; URINE AMPHETAMINES Negative (1000ng/ml); URINE BARBITURATES Negative (200ng/ml); URINE BENZODIAZEPINES Negative (200ng/ml); URINE CANNABINOIDS (THC) Positive (50ng/ml); URINE COCAINE Negative (300ng/ml); URINE METHADONE Negative (300ng/ml); URINE OPIATES Negative (300ng/ml); URINE PHENCYCLIDINE Negative (25ng/ml)
[2022-10-17 14:25] LABS: ALKALINE PHOSPHATASE 57 U/L (46-116); CHLORIDE 89 mmol/L (98-107); LIPASE 59 U/L (12-53); POTASSIUM 4.1 mmol/L (3.4-5.1); SGPT/ALT 158 U/L (10-49)
[2022-10-17 14:26] LABS: BUN < 5 mg/dl (9-23)
[2022-10-17 14:28] LABS: ETHYL ALCOHOL 317.2 mg/dl (<3)
[2022-10-17 16:00] VITALS: BP 119/83
[2022-10-17 20:00] VITALS: BP 135/78
[2022-10-18] VITALS: BP 120/83
[2022-10-18 08:00] VITALS: BP 135/81
[2022-10-18 12:00] VITALS: BP 147/96
[2022-10-18 16:00] VITALS: BP 143/86
[2022-10-18 20:00] VITALS: BP 134/90
[2022-10-19] VITALS: BP 110/75
[2022-10-19 06:04] LABS: CHLORIDE 98 mmol/L (98-107); POTASSIUM 3.9 mmol/L (3.4-5.1)
[2022-10-19 06:05] LABS: BUN < 5 mg/dl (9-23)
[2022-10-19 06:24] LABS: BASO # 0.1 10*3/uL (0.0-0.1); BASO % 0.8 % (0.0-1.0); EOS # 0.2 10*3/uL (0.0-0.4); EOS % 2.4 % (1.0-4.0); HEMATOCRIT 40.1 % (42.0-52.0); LYMPH # 0.9 10*3/uL (1.3-4.4); LYMPH % 11.9 % (27.0-41.0); MEAN CORPUSCULAR HGB CONC 35.9 g/dl (33.0-37.0); MEAN PLATELET VOLUME 9.8 fl (9.6-12.3); MONO % 13.5 % (3.0-9.0); NEUT # 5.4 10*3/uL (2.3-7.9); NEUT % 71.3 % (47.0-73.0); PLATELET COUNT AUTOMATED 216 10*3/uL (130-400); RED BLOOD COUNT 4.12 10*6/uL (4.50-5.90); WHITE BLOOD COUNT 7.6 10*3/uL (4.8-10.8)
[2022-10-19 06:25] LABS: MEAN CELL VOLUME 97.3 fl (80.0-94.0)
[2022-10-19 08:00] VITALS: BP 132/91
== END 2022-10-19 10:50 | disposition home or self-care (01) | DRG 775 ==
LOC: ED 12:58 → EDHOLD 13:33 → 4E 13:33 → EDHOLD 13:50 → 4E 15:09
PROVIDERS: Emergency Medicine; Student in an Organized Health Care Education/Training Program; ADMIT Internal Medicine; ATTEND Internal Medicine
DX: F10.239 Alcohol dependence with withdrawal, unspecified (principal); F10.220 Alcohol dependence with intoxication, uncomplicated; E87.1 Hypo-osmolality and hyponatremia; F17.210 Nicotine dependence, cigarettes, uncomplicated; Z71.6 Tobacco abuse counseling

== ENCOUNTER 2023-03-25 18:10 | Emergency (ER) | payer OTHER ==
[~2023-03-25] VITALS: Ht 182.8 cm; Wt 68.0 kg
== END 2023-03-25 19:44 | disposition left against medical advice (07) ==
LOC: ED 18:10
DX: M25.521 Pain in right elbow (principal); Z53.21 Procedure and treatment not carried out due to patient leaving prior to being seen by health care provider

== ENCOUNTER 2023-07-18 08:27 | Inpatient (IN) | payer OTHER ==
[~2023-07-18] VITALS: Ht 182.9 cm; Wt 64.5 kg
[2023-07-18 08:34] VITALS: BP 153/96
[2023-07-18] MEDS ORDERED: MULTIVITAMIN CONCENTRATE (IV) 10 ML,Thiamine 100 MG,FOLIC ACID 1 MG in SODIUM CHLORIDE ... IV ONE (08:50)
[2023-07-18] MEDS ORDERED: DIAZEPAM 5 MG TAB PO ONE (08:50)
[2023-07-18] MEDS ORDERED: Thiamine 200 MG/2 ML VIAL ONE (09:07)
[2023-07-18 09:08] LABS: BASO # 0.1 10*3/uL (0.0-0.1); BASO % 1.1 % (0.0-1.0); EOS # 0.1 10*3/uL (0.0-0.4); EOS % 1.9 % (1.0-4.0); HEMATOCRIT 40.1 % (42.0-52.0); LYMPH % 21.3 % (27.0-41.0); MEAN CELL VOLUME 98.3 fl (80.0-94.0); MEAN CORPUSCULAR HGB 34.3 pg (27.0-31.0); MEAN CORPUSCULAR HGB CONC 34.9 g/dl (33.0-37.0); MEAN PLATELET VOLUME 8.9 fl (9.6-12.3); MONO # 0.8 10*3/uL (0.1-1.0); MONO % 16.9 % (3.0-9.0); NEUT # 2.8 10*3/uL (2.3-7.9); NEUT % 58.6 % (47.0-73.0); PLATELET COUNT AUTOMATED 175 10*3/uL (130-400); RED BLOOD COUNT 4.08 10*6/uL (4.50-5.90); WHITE BLOOD COUNT 4.7 10*3/uL (4.8-10.8)
[2023-07-18] MEDS ORDERED: Ondansetron Hydrochloride 4 MG/2 ML VIAL IV ONE (09:15)
[2023-07-18 09:29] LABS: ALKALINE PHOSPHATASE 82 U/L (46-116); CHLORIDE 90 mmol/L (98-107); POTASSIUM 4.1 mmol/L (3.4-5.1); SGPT/ALT 32 U/L (5-49); TOTAL PROTEIN 8.1 gm/dL (6.0-8.0)
[2023-07-18 09:31] LABS: BUN < 5 mg/dl (9-23)
[2023-07-18] MEDS ORDERED: MG-AL HYDROXIDE/SIMETICONE 30 ML UDC PO PRN (11:15)
[2023-07-18] MEDS ORDERED: IBUPROFEN 600 MG TAB PO PRN (11:15)
[2023-07-18] MEDS ORDERED: Nicotine 21 MG PATCH T PRN (11:15)
[2023-07-18] MEDS ORDERED: BISACODYL 10 MG SUPP R PRN (11:15)
[2023-07-18] MEDS ORDERED: Loperamide Hydrochloride 2 MG CAP PO PRN ×2 (11:15)
[2023-07-18] MEDS ORDERED: Ondansetron Hydrochloride 4 MG/2 ML VIAL IV PRN (11:15)
[2023-07-18] MEDS ORDERED: ACETAMINOPHEN 500 MG TAB PO PRN (11:15)
[2023-07-18] MEDS ORDERED: Ondansetron Hydrochloride 4 MG TAB PO PRN (11:15)
[2023-07-18] MEDS ORDERED: Sennosides A and B 8.6 MG TAB PO PRN (11:15)
[2023-07-18] MEDS ORDERED: Dicyclomine Hydrochloride 20 MG TAB PO PRN (11:30)
[2023-07-18] MEDS ORDERED: METHOCARBAMOL 750 MG TAB PO PRN (11:30)
[2023-07-18] MEDS ORDERED: DIAZEPAM 10 MG/2 ML SYR IV PRN (11:30)
[2023-07-18] MEDS ORDERED: hydrOXYzine 50 MG CAP PO PRN (11:30)
[2023-07-18] MEDS ORDERED: LORazepam 1 MG TAB PO SCH (12:00)
[2023-07-18 15:48] VITALS: BP 141/88
[2023-07-18 23:12] VITALS: BP 140/55
[2023-07-19] VITALS (8 sets, daily range): BP systolic 132–160; BP diastolic 85–100
[2023-07-19 07:11] LABS: CHLORIDE 94 mmol/L (98-107); POTASSIUM 3.9 mmol/L (3.4-5.1)
[2023-07-19 07:18] LABS: BUN < 5 mg/dl (9-23)
[2023-07-19] MEDS ORDERED: LORazepam 1 MG TAB PO ONE (08:05)
[2023-07-19] MEDS ORDERED: Thiamine 100 MG TAB PO SCH (10:00)
[2023-07-19] MEDS ORDERED: MULTIVITAMIN 1 TAB TAB PO SCH (10:00)
[2023-07-19] MEDS ORDERED: Enoxaparin Sodium 40 MG/0.4 ML SYR SC SCH (10:00)
[2023-07-19] MEDS ORDERED: FOLIC ACID 1 MG TAB PO SCH (10:00)
[2023-07-19] MEDS ORDERED: Nicotine 21 MG PATCH T SCH (10:05)
[2023-07-19] MEDS ORDERED: LORazepam 1 MG TAB PO SCH (14:00)
[2023-07-20] VITALS: BP 154/84
[2023-07-20] MEDS ORDERED: DIAZEPAM 10 MG/2 ML SYR IV PRN (05:00)
[2023-07-20 07:13] LABS: CHLORIDE 90 mmol/L (98-107); POTASSIUM 3.3 mmol/L (3.4-5.1)
[2023-07-20 07:14] LABS: BUN < 5 mg/dl (9-23)
[2023-07-20] MEDS ORDERED: POTASSIUM CHLORIDE 20 MEQ TAB PO SCH (10:00)
[2023-07-20] MEDS ORDERED: LORazepam 1 MG TAB PO PRN (16:00)
== END 2023-07-20 07:59 | disposition left against medical advice (07) | DRG 770 ==
LOC: ED 08:27 → EDHOLD 09:39 → 4E 07-19 13:20
PROVIDERS: Emergency Medicine; Registered Nurse; Student in an Organized Health Care Education/Training Program; ADMIT Family Medicine; ATTEND Family Medicine
DX: F10.230 Alcohol dependence with withdrawal, uncomplicated (principal); E87.1 Hypo-osmolality and hyponatremia; F17.210 Nicotine dependence, cigarettes, uncomplicated; F10.229 Alcohol dependence with intoxication, unspecified; K21.9 Gastro-esophageal reflux disease without esophagitis; D53.9 Nutritional anemia, unspecified; Y90.6 Blood alcohol level of 120-199 mg/100 ml; Z80.1 Family history of malignant neoplasm of trachea, bronchus and lung; Z53.29 Procedure and treatment not carried out because of patient's decision for other reasons

== ENCOUNTER 2023-07-26 11:00 | Emergency (ER) | payer OTHER ==
[2023-07-26 11:40] LABS: BASO # 0.1 10*3/uL (0.0-0.1); BASO % 1.4 % (0.0-1.0); EOS # 0.2 10*3/uL (0.0-0.4); EOS % 3.1 % (1.0-4.0); HEMATOCRIT 35.4 % (42.0-52.0); LYMPH # 1.9 10*3/uL (1.3-4.4); LYMPH % 33.9 % (27.0-41.0); MEAN CELL VOLUME 100.9 fl (80.0-94.0); MEAN CORPUSCULAR HGB 34.5 pg (27.0-31.0); MEAN CORPUSCULAR HGB CONC 34.2 g/dl (33.0-37.0); MEAN PLATELET VOLUME 8.3 fl (9.6-12.3); MONO # 0.9 10*3/uL (0.1-1.0); MONO % 16.3 % (3.0-9.0); NEUT # 2.5 10*3/uL (2.3-7.9); NEUT % 44.8 % (47.0-73.0); PLATELET COUNT AUTOMATED 363 10*3/uL (130-400); RED BLOOD COUNT 3.51 10*6/uL (4.50-5.90); RED CELL DISTRI WIDTH 12.5 % (0-14.5); WHITE BLOOD COUNT 5.5 10*3/uL (4.8-10.8)
[2023-07-26 12:10] LABS: ALKALINE PHOSPHATASE 63 U/L (46-116); CHLORIDE 93 mmol/L (98-107); CPK 82 U/L (34-171); POTASSIUM 3.8 mmol/L (3.4-5.1); SGPT/ALT 19 U/L (5-49); TOTAL PROTEIN 6.7 gm/dL (6.0-8.0)
[2023-07-26 12:19] LABS: BUN < 5 mg/dl (9-23)
[2023-07-26 12:20] LABS: ETHYL ALCOHOL 363.8 mg/dl (<3)
[2023-07-26] MEDS ORDERED: THIAMINE 100 MG IV ONE (12:50)
[2023-07-26] MEDS ORDERED: SODIUM CHLORIDE IV ONE (12:50)
[2023-07-26] MEDS ORDERED: MULTIVITAMIN IV ONE (12:50)
[2023-07-26] MEDS ORDERED: [UNRECOGNIZED DRUG - OTHER] IV ONE (12:50)
[2023-07-26] MEDS ORDERED: FOLIC ACID IV ONE (12:50)
[2023-07-26] MEDS ORDERED: Ondansetron Hydrochloride 4 MG/2 ML VIAL IV ONE ×2 (12:55→23:15)
[2023-07-26 13:22] LABS: BILIRUBIN Negative (Negative); BLOOD Negative (Negative); CLARITY Clear (Clear); COLOR Yellow (Yellow); GLUCOSE Negative (Negative); KETONE Negative (Negative); LEUKO ESTERASE Negative (Negative); NITRITE Negative (Negative); PH 6.5 (4.5-8.0); UROBILINOGEN 0.2 E.U./dl (0.0-1.0)
[2023-07-26] MEDS ORDERED: Nicotine 21 MG PATCH T SCH (13:25)
[2023-07-26 13:30] LABS: URINE AMPHETAMINES Negative (1000ng/ml); URINE BARBITURATES Negative (200ng/ml); URINE BENZODIAZEPINES Negative (200ng/ml); URINE CANNABINOIDS (THC) Positive (50ng/ml); URINE COCAINE Negative (300ng/ml); URINE METHADONE Negative (300ng/ml); URINE OPIATES Negative (300ng/ml); URINE PHENCYCLIDINE Negative (25ng/ml)
[2023-07-26 13:45] LABS: RBC 0-2 rbc/hpf (0-2); WBC 0-2 wbc/hpf (0-5)
[2023-07-26] MEDS ORDERED: diphenhydrAMINE hydrochloride 50 MG/ML VIAL IV ONE (23:15)
[2023-07-27] MEDS ORDERED: Nicotine 21 MG PATCH T SCH (10:00)
[2023-07-27 11:05] LABS: CHLORIDE 101 mmol/L (98-107)
[2023-07-27 11:11] LABS: BUN < 5 mg/dl (9-23)
== END 2023-07-27 16:09 ==
LOC: ED 11:00
PROVIDERS: Internal Medicine; Nurse Practitioner
DX: F43.21 Adjustment disorder with depressed mood (principal); Z20.822 Contact with and (suspected) exposure to COVID-19; F10.129 Alcohol abuse with intoxication, unspecified; F17.210 Nicotine dependence, cigarettes, uncomplicated; F12.10 Cannabis abuse, uncomplicated; Z98.890 Other specified postprocedural states; Z79.899 Other long term (current) drug therapy; Y90.8 Blood alcohol level of 240 mg/100 ml or more

== ENCOUNTER 2024-12-16 10:01 | Emergency (ER) | payer OTHER ==
[~2024-12-16] VITALS: Ht 182.8 cm; Wt 71.7 kg
[2024-12-16] MEDS ORDERED: diazePAM 5 MG TAB PO ONE (10:20)
[2024-12-16] MEDS ORDERED: MAGNESIUM SULFATE 100 ML IV ONE (10:20)
[2024-12-16] MEDS ORDERED: FOLIC ACID 1 MG TAB PO ONE (10:20)
[2024-12-16] MEDS ORDERED: MULTIVITAMIN 1 TAB TAB PO ONE (10:35)
[2024-12-16 10:40] LABS: BASO # 0.1 10*3/uL (0.0-0.1); BASO % 1.3 % (0.0-1.0); EOS # 0.0 10*3/uL (0.0-0.4); EOS % 0.7 % (1.0-4.0); MEAN CELL VOLUME 96.8 fl (80.0-94.0); MEAN CORPUSCULAR HGB 34.2 pg (27.0-31.0); MEAN PLATELET VOLUME 8.7 fl (9.6-12.3); MONO # 0.8 10*3/uL (0.1-1.0); MONO % 13.7 % (3.0-9.0); NEUT # 3.8 10*3/uL (2.3-7.9); NEUT % 68.6 % (47.0-73.0); NUCLEATED RED BLOOD CELL 0.0 % (0.0-0.0); NUCLEATED RED BLOOD CELL 0.0 10*3/uL (0.0-0.0); PLATELET COUNT AUTOMATED 240 10*3/uL (130-400); RED CELL DISTRI WIDTH 12.0 % (0-14.5)
[2024-12-16 11:06] LABS: SGPT/ALT 52 U/L (5-49)
[2024-12-16 11:09] LABS: BUN < 5 mg/dl (9-23)
[2024-12-16] MEDS ORDERED: VALIUM5 MG PO (11:23)
== END 2024-12-16 11:28 | disposition home or self-care (01) ==
LOC: ED 10:01
PROVIDERS: Emergency Medicine
DX: I10 Essential (primary) hypertension (principal); F10.239 Alcohol dependence with withdrawal, unspecified; F17.210 Nicotine dependence, cigarettes, uncomplicated; Z98.890 Other specified postprocedural states; Y90.9 Presence of alcohol in blood, level not specified